=== PATIENT | male | born 1980 | race Caucasian/White ===

== ENCOUNTER 2018-07-23 08:03 | Day surgery (SDC) | payer BC ==
[2018-07-23] MEDS ORDERED: CEFAZOLIN 1 GM INJ (10:36)
[2018-07-23] MEDS: POLYMYXIN/BACITRACIN 1L IRRIG (11:02)
[2018-07-23] MEDS: BUPIVACAINE 0.5% (SDV) 30 ML INJ (11:02)
[2018-07-23] MEDS ORDERED: OXYCODONE/ACETAMINOPHEN (5/325) TAB PO ×2 (12:30)
[2018-07-23] MEDS ORDERED: LABETALOL HCL 20MG INJ IV (12:30)
[2018-07-23] MEDS ORDERED: ONDANSETRON 4 MG INJ IV (12:30)
[2018-07-23] MEDS ORDERED: FENTAnyl 50 MCG/ML VIAL IV ×2 (12:30)
[2018-07-23] MEDS ORDERED: MEPERIDINE 25 MG INJ IV (12:30)
== END 2018-07-23 13:30 | disposition home or self-care (01) ==
LOC: SDS 08:03
DX: M20.5X2 Other deformities of toe(s) (acquired), left foot (principal); D16.32 Benign neoplasm of short bones of left lower limb; E11.9 Type 2 diabetes mellitus without complications; E78.5 Hyperlipidemia, unspecified; E66.01 Morbid (severe) obesity due to excess calories; Z68.42 Body mass index [BMI] 45.0-49.9, adult; I12.9 Hypertensive chronic kidney disease with stage 1 through stage 4 chronic kidney disease, or unspecified chronic kidney disease; N18.1 Chronic kidney disease, stage 1
CPT/HCPCS: 14040; 82962